=== PATIENT | female | born 1970 | race Caucasian/White ===

== ENCOUNTER 2019-09-17 14:10 | Emergency (ER) | payer SELFPAY ==
[2019-09-17] MEDS ORDERED: IBUPROFEN 800 MG TABLET PO ONE (14:49)
--- NOTE | 2019-09-17 14:49 | ER Document Report ---
ED Medical Screen (RME) - General Chief Complaint: Fall Injury Stated Complaint: FALL/FACIAL INJURY Time Seen by Provider: 09/17/19 14:46 Primary Care Provider: DANIEL JAQUEZ MD [Primary Care Provider] - Follow up as needed Mode of Arrival: Ambulatory Information source: Patient Notes: 49-year-old female scented to ED for complaint of pain to the chin. She states she fell down her steps and hit her face on the concrete steps. She does have an abrasion redness and swelling to her chin. And get her seen by another provider. She states she has not had any Tylenol or Motrin today. We will give her some ibuprofen in the pit area. There appears to be some fluctuance to the area I will have 1 of the providers reevaluated to see if it needs to be I&D. She states this morning there was pus coming out of the abrasion. I have greeted and performed a rapid initial assessment of this patient. A comprehensive ED assessment and evaluation of the patient, analysis of test results and completion of medical decision making process will be conducted by an additional ED providers. - Related Data Allergies/Adverse Reactions: No Known Allergies Allergy (Unverified 10/11/18 15:05) Past Medical History Past Surgical History: Reports: Hx Tubal Ligation - Immunizations Hx Diphtheria, Pertussis, Tetanus Vaccination: Yes Physical Exam - Vital signs Vitals: Temp Pulse Resp BP Pulse Ox 98.6 F 88 20 135/87 H 96 09/17/19 14:32 09/17/19 14:32 09/17/19 14:32 09/17/19 14:32 09/17/19 14:32 Course - Vital Signs Vital signs: Temp Pulse Resp BP Pulse Ox 98.6 F 88 20 135/87 H 96 09/17/19 14:32 09/17/19 14:32 09/17/19 14:32 09/17/19 14:32 09/17/19 14:32 Doctor's Discharge - Discharge Referrals: DANIEL JAQUEZ MD [Primary Care Provider] - Follow up as needed
--- NOTE | 2019-09-17 15:45 | RADIOLOGY REPORT (SQ) ---
EXAM DESCRIPTION: MANDIBLE 4 VIEWS OR MORE COMPLETED DATE/TIME: 09/17/2019 3:22 pm REASON FOR STUDY: fall pain and swelling COMPARISON: None. NUMBER OF VIEWS: Four view. TECHNIQUE: Images of the mandible acquired. AP, Whit's, angled right, angled left mandible images. LIMITATIONS: None. FINDINGS: MANDIBLE: No acute fracture. No disruption of the right or left temporomandibular joints. ORBITS: No fracture. No foreign body. SINUSES: No mucosal thickening. No air fluid levels. FACIAL BONES: No fracture. OTHER: No other significant finding. IMPRESSION: NO ACUTE FRACTURE OR MALALIGNMENT. TECHNICAL DOCUMENTATION: JOB ID: [id number] [employer]- All Rights Reserved Reading location - IP/workstation name: [email or web address]
[2019-09-17] MEDS ORDERED: LIDOCAINE 1% INJ (10 MG/ML) 10 ML MDV INJ ONE (19:20)
--- NOTE | 2019-09-17 19:37 | ER Document Report ---
ED General - General Chief Complaint: Facial Injury Stated Complaint: FALL/FACIAL INJURY Time Seen by Provider: 09/17/19 14:46 Primary Care Provider: DANIEL JAQUEZ MD [Primary Care Provider] - Follow up as needed Mode of Arrival: Ambulatory Information source: Patient TRAVEL OUTSIDE OF THE [place] IN LAST 30 DAYS: No - HPI Onset: Yesterday Onset/Duration: Sudden, Gradual - patient had a sudden fall but her injured area on her chin has gradually turned red warm and swollen Quality of pain: Throbbing Severity: Moderate Pain Level: 2 Associated symptoms: Other - pain in jaw with redness, swelling, warmth, drainage Exacerbated by: Other - touchin her chin Relieved by: Denies Similar symptoms previously: No Recently seen / treated by doctor: No Notes: 49 year old female with no known PMH here for evaluation of a chin injury which may now be infected. The patient says she tripped and hit her chin on concrete yesterday morning. Since then she has develped redness, swelling, pain, and wound drainage (purulent). The patient denies fevers, chills, sweats, or other systemic symptoms. - Related Data Allergies/Adverse Reactions: No Known Allergies Allergy (Unverified 10/11/18 15:05) Past Medical History - General Information source: Patient - Social History Smoking Status: Current Every Day Smoker Frequency of alcohol use: Occasional Drug Abuse: None Lives with: Family Family History: Reviewed & Not Pertinent Patient has suicidal ideation: No Patient has homicidal ideation: No Past Surgical History: Reports: Hx Tubal Ligation - Immunizations Hx Diphtheria, Pertussis, Tetanus Vaccination: Yes Review of Systems - Review of Systems Constitutional: No symptoms reported EENT: No symptoms reported Cardiovascular: No symptoms reported Respiratory: No symptoms reported Gastrointestinal: No symptoms reported Genitourinary: No symptoms reported Female Genitourinary: No symptoms reported Musculoskeletal: Other - jaw pain Skin: Other - redness, warmth, swelling of chin with prior purulant drainage Hematologic/Lymphatic: No symptoms reported Neurological/Psychological: No symptoms reported -: Yes All other systems reviewed and negative Physical Exam - Vital signs Vitals: Temp Pulse Resp BP Pulse Ox 98.6 F 88 20 135/87 H 96 09/17/19 14:32 09/17/19 14:32 09/17/19 14:32 09/17/19 14:32 09/17/19 14:32 Course - Re-evaluation Re-evalutation: 09/17/19 19:40 The patient had a plain film of her Mandible done in triage which showed no acute process. I performed an incision and drainage of her small chin abscess. Patient was given wound care instructions. Patient clearly has surrounding cellulites of her chin abscess so will DC on a course of Clindamycin. - Vital Signs Vital signs: Temp Pulse Resp BP Pulse Ox 97.9 F 69 18 119/74 95 09/17/19 18:22 09/17/19 18:22 09/17/19 18:22 09/17/19 18:22 09/17/19 18:22 Procedures - Incision and Drainage Chin Abscess Type: Simple Anesthetic type: 1% Lidocaine mL's of anesthetic: 2 Blade size: 11 I&D procedure: Betadine prep applied Incision Method: Incision made by scalpel Discharge - Discharge Clinical Impression: Facial abscess, Facial cellulitis Condition: Stable Disposition: HOME, SELF-CARE Instructions: Abscess ([facility]), Cellulitis ([facility]) Additional Instructions: Take Clindamycin (oral antibiotic) as prescribed and also keep your wound covered in over the counter antibiotic ointment until it is completely healed. Wash your wound with soap and water several times a day and do not let the abscess close up. Use Tylenol and Motrin for pain. Follow up with your primary care doctor to ensure your skin infection heals. Prescriptions: Clindamycin HCl [Cleocin 150 mg Capsule] 450 mg PO TID #63 capsule Referrals: DANIEL JAQUEZ MD [Primary Care Provider] - Follow up as needed
[2019-09-17] MEDS ORDERED: CLINDAMYCIN HCL 150 MG CAPSULE PO ONE (19:58)
[2019-09-17 20:03] VITALS: BP 116/80
== END 2019-09-17 20:03 | disposition home or self-care (01) ==
LOC: ER 14:10
DX: L02.01 Cutaneous abscess of face (principal); L03.211 Cellulitis of face; S09.93XA Unspecified injury of face, initial encounter; W10.8XXA Fall (on) (from) other stairs and steps, initial encounter; F17.200 Nicotine dependence, unspecified, uncomplicated
CPT/HCPCS: 70110; 99283

== ENCOUNTER 2020-03-06 08:03 | Day surgery (SDC) | payer OTHER ==
[2020-03-06] MEDS ORDERED: PROPOFOL INJ 200 MG/20 ML VIAL IV ONE (08:12)
--- NOTE | 2020-03-06 10:26 | Operative Report ---
Operative Report DATE OF SURGERY: 03/06/20 Operative Report: The risk, benefits and alternatives of the procedure including the risk of bleeding, perforation requiring surgery have been explained to the patient in detail and informed consent has been obtained. Patient is taken back to the endoscopy suite and placed in a left, lateral decubital position. Timeout was called. Propofol medication is administered. Rectal examination is done which did not reveal any masses, tears or fissures. An Olympus videoscope was introduced into the patient's rectum. Scope was then carefully advanced all the way to the cecum. Cecum was identified by the usual anatomical landmarks of the ileocecal valve as well as the appendiceal office. Photodocumentation is obtained. Scope was then sequentially pulled back via the various segments of the colon including the ascending colon, hepatic flexure transverse colon, splenic flexure, descending colon and finally into the rectosigmoid portions of the colon. Retroflexion maneuver is performed. The risks benefits and alternatives of the procedure explained to the patient in detail and informed consent is obtained.A GIF Olympus video scope was inserted into the patient's mouth and hypopharynx, the esophagus is identified intubated and insufflated ,the scope was then advanced through the esophagus stomach and duodenum ,retroflexion maneuver is done, the esophagus stomach and first and second portions of the duodenum examined PREOPERATIVE DIAGNOSIS: Change of bowel habits. Nausea vomiting, epigastric pain POSTOPERATIVE DIAGNOSIS: Right colon inflammation status post biopsy. Gastritis status post biopsy. Duodenitis. Esophagitis. Hiatal hernia OPERATION: Colonoscopy with biopsy. EGD with biopsy SURGEON: JUANITA LA ANESTHESIA: LMAC TISSUE REMOVED OR ALTERED: As noted above. COMPLICATIONS: None. ESTIMATED BLOOD LOSS: None. INTRAOPERATIVE FINDINGS: As noted above. PROCEDURE: Patient tolerated the procedure well. No immediate postprocedure complications are noted. Patient is discharged in good condition. Discharge date 03/06/2020. Discharge diet: Regular. Discharge activity: Regular. 2 to 3-week follow-up to discuss findings. Patient is instructed to call the office or proceed to the emergency room should there be any further problems or questions. Wait on the pathology. Depending on pathology consider 5 to 10-year surveillance colonoscopy
[2020-03-06 11:07] VITALS: BP 133/68
== END 2020-03-06 11:18 | disposition home or self-care (01) ==
LOC: END 08:03
PROVIDERS: ATTEND Internal Medicine Gastroenterology
DX: K52.9 Noninfective gastroenteritis and colitis, unspecified (principal); K29.80 Duodenitis without bleeding; Z80.0 Family history of malignant neoplasm of digestive organs; K44.9 Diaphragmatic hernia without obstruction or gangrene; K20.9 Esophagitis, unspecified; K29.50 Unspecified chronic gastritis without bleeding; Z79.899 Other long term (current) drug therapy; F17.210 Nicotine dependence, cigarettes, uncomplicated; Z03.818 Encounter for observation for suspected exposure to other biological agents ruled out
CPT/HCPCS: 43239; 45380; 87635; 88342 ×2; 88305 ×2; 00813; J2704; C9803; 813

== ENCOUNTER 2020-05-05 10:57 | Emergency (ER) | payer OTHER ==
[2020-05-05 11:23] VITALS: BP 117/75
[2020-05-05] MEDS ORDERED: MORPHINE SULFATE 10 MG/ML INJ IV ONE (12:03)
[2020-05-05] MEDS ORDERED: NORMAL SALINE 1000 ML 1,000 ML IV ONE (12:03)
[2020-05-05] MEDS ORDERED: ONDANSETRON HCL INJ/PF 4 MG/2 ML SDV IV ONE (12:03)
--- NOTE | 2020-05-05 12:17 | ER Document Report ---
ED GI/ - General Chief Complaint: Nausea/Vomiting/Diarrhea Stated Complaint: HEADACHE,VOMITING,DIARRHEA Time Seen by Provider: 05/05/20 11:33 Primary Care Provider: GUERO JOHNSON DO [Primary Care Provider] - Follow up as needed Notes: CHIEF COMPLAINT: Abdominal pain nausea vomiting diarrhea HPI: 50-year-old female presenting with abdominal pain in the right lower quadrant, also in the left lower quadrant that began yesterday. Began with nausea vomiting and diarrhea yesterday as well. 2 episodes of vomiting yesterday 3 episodes today. 3 episodes total of diarrhea. No blood in her stool. Patient states the pain in the lower abdomen is fairly constant. Patient also complaining of a mild generalized headache that feels like the headache she gets when she gets a migraine. Headache was not thunderclap in onset. She has taken no medications for the headache ROS: See HPI - all other systems were reviewed and are otherwise negative Constitutional: no fever Eyes: no drainage, no blurred vision ENT: no runny nose, no sore throat Cardiovascular: no chest pain Resp: no SOB, no cough GI: + vomiting, + diarrhea, + abdominal pain : no dysuria Integumentary: no rash Allergy: no hives Musculoskeletal: no extremity pain or swelling Neurological: no numbness/tingling, no weakness MEDICATIONS: I agree with the patient medications as charted by the RN. ALLERGIES: I agree with the allergies as charted by the RN. PAST MEDICAL HISTORY/PAST SURGICAL HISTORY: Reviewed and agree as charted by RN. SOCIAL HISTORY: Reviewed and agree as charted by RN. FAMILY HISTORY: No significant familial comorbid conditions directly related to patient complaint EXAM: Reviewed vital signs as charted by RN. CONSTITUTIONAL: Alert and oriented and responds appropriately to questions. Well-appearing; well-nourished, mild distress secondary to discomfort HEAD: Normocephalic; atraumatic EYES: PERRL; Conjunctivae clear, sclerae non-icteric ENT: normal nose; no rhinorrhea; moist mucous membranes; pharynx without lesions noted, no uvula edema or deviation, no tonsillar hypertrophy, phonation normal NECK: Supple without meningismus; non-tender; no cervical lymphadenopathy, no masses CARD: RRR; no murmurs, no clicks, no rubs, no gallops; symmetric distal pulses RESP: Normal chest excursion without splinting or tachypnea; breath sounds clear and equal bilaterally; no wheezes, no rhonchi, no rales, pulse oximetry 97% on room air not hypoxic ABD/GI: Normal bowel sounds; non-distended; soft, mild tenderness in both the right and left lower quadrants on palpation, no rebound, no guarding; no palpable organomegaly or masses. BACK: The back appears normal and is non-tender to palpation, there is no CVA tenderness EXT: Normal ROM in all joints; non-tender to palpation; no cyanosis, no effusions, no edema SKIN: Normal color for age and race; warm; dry; good turgor; no acute lesions noted NEURO: Moves all extremities equally; Motor and sensory function intact PSYCH: The patient's mood and manner are appropriate. Grooming and personal hygiene are appropriate. MDM: 50-year-old female presenting with multiple complaints nausea vomiting diarrhea with some lower abdominal pain more prominent in the right lower quadrant. Also with a mild generalized headache that was not thunderclap in onset. She is alert oriented ambulatory. Will obtain baseline screening labs, CT for appendicitis. TRAVEL OUTSIDE OF THE [place] IN LAST 30 DAYS: No - Related Data Allergies/Adverse Reactions: No Known Allergies Allergy (Verified 03/06/20 08:16) Home Medications: meclazine Past Medical History - Social History Smoking Status: Current Every Day Smoker Family History: Reviewed & Not Pertinent Patient has homicidal ideation: No - Past Medical History Cardiac Medical History: Denies: Hx Coronary Artery Disease, Hx Heart Attack, Hx Hypertension Pulmonary Medical History: Denies: Hx Asthma, Hx Bronchitis, Hx COPD, Hx Pneumonia Neurological Medical History: Denies: Hx Cerebrovascular Accident, Hx Seizures Musculoskeletal Medical History: Denies Hx Arthritis Past Surgical History: Reports: Hx Tubal Ligation - Immunizations Hx Diphtheria, Pertussis, Tetanus Vaccination: Yes Physical Exam - Vital signs Vitals: Temp Pulse Resp BP Pulse Ox 98.4 F 83 18 117/75 98 05/05/20 11:20 05/05/20 11:20 05/05/20 11:20 05/05/20 11:20 05/05/20 11:20 Course - Re-evaluation Re-evalutation: 05/05/20 16:07 CT imaging and lab work did not show acute findings. This is likely a viral etiology will COVID test the patient I spoke with the patient about that she will be a person under investigation pending results. Patient still complaining of mild headache I will give her Toradol. - Vital Signs Vital signs: Temp Pulse Resp BP Pulse Ox 98.4 F 83 18 117/75 98 05/05/20 11:20 05/05/20 11:20 05/05/20 11:20 05/05/20 11:20 05/05/20 11:20 - Laboratory Result Diagrams: 05/05/20 12:20 05/05/20 12:20 Laboratory results interpreted by me: 05/05/20 12:20 RDW 14.2 H Discharge - Discharge Clinical Impression: Nausea vomiting and diarrhea, Abdominal pain, right lower quadrant, Person under investigation for COVID-19 Headache Qualifiers: Headache type: unspecified Headache chronicity pattern: unspecified pattern Intractability: not intractable Qualified Code(s): R51 - Headache Condition: Stable Disposition: HOME, SELF-CARE Instructions: Vomiting ([facility]), COVID-19 Guidance for Persons Under Investigation Additional Instructions: Take the medications as prescribed, Zofran for nausea vomiting. Bentyl for abdominal pain or spasm. You are considered a person under investigation for COVID-19 at this time. Self quarantine at home pending results which usually take 2 to 5 days. You will receive a call from the hospital about your results. Return for worsening symptoms or condition. Follow-up with your primary care provider for reevaluation of symptoms, call for appointment Prescriptions: Dicyclomine HCl [Bentyl 20 mg Tablet] 20 mg PO Q6H PRN #20 tablet PRN Reason: Ondansetron [Zofran Odt 4 mg Tablet] 1 - 2 tab PO Q4H PRN #15 tab.rapdis PRN Reason: For Nausea/Vomiting Forms: Return to Work Referrals: GUERO JOHNSON DO [Primary Care Provider] - Follow up as needed
[2020-05-05 12:41] LABS: ABSOLUTE BASOPHILS # (AUTO) 0.1 10^3/uL (0.0-0.2); ABSOLUTE EOSINOPHILS # (AUTO) 0.1 10^3/uL (0.0-0.6); ABSOLUTE LYMPHOCYTES (AUTO) 2.5 10^3/uL (0.5-4.7); ABSOLUTE MONOCYTES (AUTO) 0.3 10^3/uL (0.1-1.4); BASOPHILS % (AUTO) 0.8 % (0-2); EOSINOPHILS % (AUTO) 1.1 % (0-6); HEMATOCRIT 42.5 % (36.0-47.0); HEMOGLOBIN 14.8 g/dL (12.0-15.5); LYMPHOCYTES % (AUTO) 25.1 % (13-45); MEAN CORPUSCULAR HEMOGLOBIN 31.3 pg (27.0-33.4); MEAN CORPUSCULAR HGB CONC 34.7 g/dL (32.0-36.0); MEAN CORPUSCULAR VOLUME 90 fl (80-97); MONOCYTES % (AUTO) 3.2 % (3-13); PLATELET COUNT 355 10^3/uL (150-450); RED BLOOD COUNT 4.71 10^6/uL (3.72-5.28); RED CELL DISTRIBUTION WIDTH 14.2 % (11.5-14.0); SEGMENTED NEUTROPHILS % (AUTO) 69.8 % (42-78); TOTAL CELLS COUNTED % (AUTO) 100 %
[2020-05-05 12:54] LABS: APPEARANCE,URINE CLEAR; BILIRUBIN,URINE NEGATIVE (NEGATIVE); COLOR,URINE YELLOW; GLUCOSE, URINE NEGATIVE (NEGATIVE); KETONES,URINE NEGATIVE (NEGATIVE); LEUKOCYTE ESTERASE,URINE NEGATIVE (NEGATIVE); NITRITE,URINE NEGATIVE (NEGATIVE); PROTEIN,URINE NEGATIVE (NEGATIVE); URINE SPECIFIC GRAVITY 1.012; UROBILINOGEN,URINE NEGATIVE mg/dL (<2.0)
[2020-05-05 13:02] LABS: ALBUMIN 4.6 g/dL (3.5-5.0); ALKALINE PHOSPHATASE 76 U/L (38-126); ANION GAP 10 (5-19); ASPARTATE AMINO TRANSFERASE 29 U/L (14-36); BILIRUBIN,DIRECT 0.2 mg/dL (0.0-0.4); BILIRUBIN,TOTAL 0.8 mg/dL (0.2-1.3); BLOOD UREA NITROGEN 13 mg/dL (7-20); CALCIUM 9.9 mg/dL (8.4-10.2); CARBON DIOXIDE 24 mmol/L (22-30); CHLORIDE 106 mmol/L (98-107); GLUCOSE 105 mg/dL (75-110); POTASSIUM 4.8 mmol/L (3.6-5.0); TOTAL PROTEIN 7.5 g/dL (6.3-8.2)
--- NOTE | 2020-05-05 15:15 | RADIOLOGY REPORT (SQ) ---
EXAM DESCRIPTION: CT ABD/PELVIS WITH IV ORAL IMAGES COMPLETED DATE/TIME: 05/05/2020 3:00 pm REASON FOR STUDY: RLQ pain COMPARISON: 04/22/2011. TECHNIQUE: CT scan of the abdomen and pelvis performed using helical scanning technique with dynamic intravenous contrast injection. No oral contrast. Images reviewed with lung, soft tissue, and bone windows. Reconstructed coronal and sagittal MPR images reviewed. Delayed images for evaluation of the urinary system also acquired. All images stored on PACS. All CT scanners at this facility use dose modulation, iterative reconstruction, and/or weight based d osing when appropriate to reduce radiation dose to as low as reasonably achievable (ALARA). [facility]: Dose Right [facility]: CareDose [facility]: Dose Right [facility]: Teradose 4D [facility]: Workspot CONTRAST TYPE AND DOSE: contrast/concentration: Isovue 350.00 mmol/ml; Total Contrast Delivered: 100 .0 ml; Total Saline Delivered: 41.9 ml RENAL FUNCTION: BUN 13 creatinine 0.62. RADIATION DOSE: CT Rad equipment meets quality standard of care and radiation dose reduction techniq ues were employed. CTDIvol: 12.7 - 16.1 mGy. DLP: 1651 mGy-cm.. LIMITATIONS: None. FINDINGS: LOWER CHEST: No significant findings. No nodules or infiltrates. LIVER: Normal size. No masses. No dilated ducts. SPLEEN: Normal size. No focal lesions. PANCREAS: No masses. No significant calcifications. No adjacent inflammation or peripancreatic fluid collections. Pancreatic duct not dilated. GALLBLADDER: No identified stones by CT criteria. No inflammatory changes to suggest cholecystitis. ADRENAL GLANDS: No significant masses or asymmetry. RIGHT KIDNEY AND URETER: No solid masses. No significant calcifications. No hydronephrosis or hyd roureter. LEFT KIDNEY AND URETER: No solid masses. No significant calcifications. No hydronephrosis or hydr oureter. AORTA AND VESSELS: No aneurysm. No dissection. Renal arteries, SMA, celiac without stenosis. RETROPERITONEUM: No retroperitoneal adenopathy, hemorrhage or masses. BOWEL AND PERITONEAL CAVITY: No masses or inflammatory changes. No free fluid or peritoneal masses. APPENDIX: Normal. PELVIS: No mass. No free fluid. Normal bladder. ABDOMINAL WALL: No masses. No hernias. BONES: No significant or acute findings. OTHER: No other significant finding. IMPRESSION: NO SIGNIFICANT OR ACUTE FINDING IN THE ABDOMEN OR PELVIS ON CT SCAN WITH IV CONTRAST. TECHNICAL DOCUMENTATION: JOB ID: [id number] Quality ID # [id number]: Final reports with documentation of one or more dose reduction techniques (e.g., Au tomated exposure control, adjustment of the mA and/or kV according to patient size, use of iterative reconstruction technique) 2010 [employer]- All Rights Reserved Reading location - IP/workstation name: [email or web address]
== END 2020-05-05 16:34 | disposition home or self-care (01) ==
LOC: ER 10:57
DX: R10.31 Right lower quadrant pain (principal); R10.32 Left lower quadrant pain; R10.813 Right lower quadrant abdominal tenderness; R10.814 Left lower quadrant abdominal tenderness; R11.2 Nausea with vomiting, unspecified; R19.7 Diarrhea, unspecified; R51 Headache; F17.200 Nicotine dependence, unspecified, uncomplicated; Z86.69 Personal history of other diseases of the nervous system and sense organs; Z79.899 Other long term (current) drug therapy; Z20.828 Contact with and (suspected) exposure to other viral communicable diseases
CPT/HCPCS: 99285; 96361; 96374; 96375; 36415; 83690; 84703; 85025; 87635; 80053; 81001; 74177; J2270; J2405; J7030; C9803